=== PATIENT | male | born 1945 | race Caucasian/White ===

== ENCOUNTER 2017-04-14 13:55 | Emergency (ER) | payer MEDICARE, OTHER ==
[~2017-04-14] VITALS: Ht 162.6 cm; Wt 90.0 kg
[2017-04-14 13:58] VITALS: BP 198/84; PULSE 79; RESP 18; TEMP 98.5; O2SAT 96
[2017-04-14] MEDS ORDERED: SODIUM CHLORIDE 0.9% FLUSH 10 ML FLUSH IVF PRN (14:30)
--- NOTE | 2017-04-14 14:57 | PD ---
HPI Chief Complaint: Complaint Time Seen by Provider: 14:11 Travel History International Travel<30 days: No Contact w/Intl Traveler<30days: No Traveled to known affect area: No History of Present Illness HPI 71-year-old male presents to the emergency department complaining of urinary retention since this morning. States he only 'dribbled' the last time he urinated. He says he did not completely empty his bladder. Denies hematuria, at risk sexual behavior, fever, chills, chest pain, shortness of breath. He has mild pelvic discomfort. States he has had an elevated PSA for approximately 2 years and has only recently had issues with urination. Patient is due to see urologist however, he is concerned because he is not able to urinate now. Medical history significant for MIs, on Plavix. No recent trauma. Patient is not on Flomax or any other medications to reduce his symptoms. PFSH Past Medical History Hx Anticoagulant Therapy: Yes (PLAVIX) Cancer: Yes (SQUAMOUS CELL CARC. ) Cardiac Catheterization: Yes (MT X2, STENTS X2) Cardiovascular Problems: Yes (2 MT, STENTS ) High Cholesterol: Yes Hypertension: Yes Tetanus Vaccination: < 5 Years ?: Not Past Surgical History Appendectomy: Yes Tonsillectomy: Yes Other Surgery: Yes (TONGUE AND NECK CA SX) Social History Alcohol Use: Yes (OCC) Tobacco Use: No Substance Use: No Allergies-Medications (Allergen,Severity, Reaction): Coded Allergies: shellfish derived (Verified Allergy, Intermediate, Hives, 04/14/17) Reported Meds & Prescriptions Reported Meds & Active Scripts Active Flomax (Tamsulosin HCl) 0.4 Mg Cap 0.4 Mg PO HS 14 Days Review of Systems Except as stated in HPI: all other systems reviewed are Neg Physical Exam Narrative GENERAL: Well-developed well-nourished in no apparent distress SKIN: Focused skin assessment warm/dry. HEAD: Atraumatic. Normocephalic. EYES: Pupils equal and round. No scleral icterus. No injection or drainage. NECK: Trachea midline. No JVD. CARDIOVASCULAR: Regular rate and rhythm. No murmur appreciated. RESPIRATORY: No accessory muscle use. Clear to auscultation. Breath sounds equal bilaterally. GASTROINTESTINAL: Abdomen soft nontender nondistended. Pelvic region- round smooth mass consistent with a distended bladder. Rectal exam- good tone, stool brown, prostate enlarged without nodules. Penile exam- no rashes or lesions. No discharge. No obvious strictures or edema. MUSCULOSKELETAL: No obvious deformities. No clubbing. No cyanosis. No edema. NEUROLOGICAL: Awake and alert. No obvious cranial nerve deficits. Motor grossly within normal limits. Normal speech. PSYCHIATRIC: Appropriate mood and affect; insight and judgment normal. Data Data Last Documented VS Vital Signs Date Time Temp Pulse Resp B/P (MAP) Pulse Ox O2 Delivery O2 Flow Rate FiO2 04/14/17 13:58 98.5 79 18 198/84 (122) 96 Room Air Orders Orders Complete Blood Count With Diff (04/14/17 14:25) Basic Metabolic Panel (Bmp) (04/14/17 14:25) Urinalysis - C+S If Indicated (04/14/17 14:25) Ecg Monitoring (04/14/17 14:25) Iv Access Insert/Monitor (04/14/17 14:25) Sodium Chloride 0.9% Flush (Ns Flush) (04/14/17 14:30) Urinary Catheter Insert/Apply (04/14/17 14:39) Bag, Leg 32oz Sterile Large Ea (04/14/17 15:18) Ed Discharge Order (04/14/17 15:33) Labs Laboratory Tests Test 04/14/17 14:40 White Blood Count 7.1 TH/MM3 Red Blood Count 5.66 MIL/MM3 Hemoglobin 17.7 GM/DL Hematocrit 50.2 % Mean Corpuscular Volume 88.6 FL Mean Corpuscular Hemoglobin 31.3 PG Mean Corpuscular Hemoglobin Concent 35.3 % Red Cell Distribution Width 14.1 % Platelet Count 306 TH/MM3 Mean Platelet Volume 7.8 FL Neutrophils (%) (Auto) 76.7 % Lymphocytes (%) (Auto) 14.2 % Monocytes (%) (Auto) 7.6 % Eosinophils (%) (Auto) 1.0 % Basophils (%) (Auto) 0.5 % Neutrophils # (Auto) 5.5 TH/MM3 Lymphocytes # (Auto) 1.0 TH/MM3 Monocytes # (Auto) 0.5 TH/MM3 Eosinophils # (Auto) 0.1 TH/MM3 Basophils # (Auto) 0.0 TH/MM3 CBC Comment DIFF FINAL Differential Comment Urine Color LIGHT-YELLOW Urine Turbidity CLEAR Urine pH 7.0 Urine Specific [place] 1.006 Urine Protein NEG mg/dL Urine Glucose (UA) NEG mg/dL Urine Ketones NEG mg/dL Urine Occult Blood NEG Urine Nitrite NEG Urine Bilirubin NEG Urine Urobilinogen LESS THAN 2.0 MG/DL Urine Leukocyte Esterase NEG Urine RBC LESS THAN 1 /hpf Microscopic Urinalysis Comment CULT NOT INDICATED Blood Urea Nitrogen 18 MG/DL Creatinine 1.24 MG/DL Random Glucose 118 MG/DL Calcium Level 9.8 MG/DL Sodium Level 136 MEQ/L Potassium Level 3.7 MEQ/L Chloride Level 102 MEQ/L Carbon Dioxide Level 25.3 MEQ/L Anion Gap 9 MEQ/L Estimat Glomerular Filtration Rate 57 ML/MIN [facility] [place] Medical Decision Making Medical Screen Exam Complete: Yes Emergency Medical Condition: Yes Differential Diagnosis BPH, urinary retention, cystitis, urine tract infection Narrative Course 71-year-old male presents to the emergency department complaining of urinary retention since this morning. States he only 'dribbled' the last time he urinated. He says he did not completely empty his bladder. Denies hematuria, at risk sexual behavior, fever, chills, chest pain, shortness of breath. He has mild pelvic discomfort. States he has had an elevated PSA for approximately 2 years and has only recently had issues with urination. Patient is due to see urologist however, he is concerned because he is not able to urinate now. Medical history significant for MIs, on Plavix. No recent trauma. Patient is not on Flomax or any other medications to reduce his symptoms. Vital signs stable Urine catheter [id number] cc drained. Patient's symptoms drastically improved Laboratory Tests Test 04/14/17 14:40 White Blood Count 7.1 TH/MM3 Red Blood Count 5.66 MIL/MM3 Hemoglobin 17.7 GM/DL Hematocrit 50.2 % Mean Corpuscular Volume 88.6 FL Mean Corpuscular Hemoglobin 31.3 PG Mean Corpuscular Hemoglobin Concent 35.3 % Red Cell Distribution Width 14.1 % Platelet Count 306 TH/MM3 Mean Platelet Volume 7.8 FL Neutrophils (%) (Auto) 76.7 % Lymphocytes (%) (Auto) 14.2 % Monocytes (%) (Auto) 7.6 % Eosinophils (%) (Auto) 1.0 % Basophils (%) (Auto) 0.5 % Neutrophils # (Auto) 5.5 TH/MM3 Lymphocytes # (Auto) 1.0 TH/MM3 Monocytes # (Auto) 0.5 TH/MM3 Eosinophils # (Auto) 0.1 TH/MM3 Basophils # (Auto) 0.0 TH/MM3 CBC Comment DIFF FINAL Differential Comment Urine Color LIGHT-YELLOW Urine Turbidity CLEAR Urine pH 7.0 Urine Specific [place] 1.006 Urine Protein NEG mg/dL Urine Glucose (UA) NEG mg/dL Urine Ketones NEG mg/dL Urine Occult Blood NEG Urine Nitrite NEG Urine Bilirubin NEG Urine Urobilinogen LESS THAN 2.0 MG/DL Urine Leukocyte Esterase NEG Urine RBC LESS THAN 1 /hpf Microscopic Urinalysis Comment CULT NOT INDICATED Blood Urea Nitrogen 18 MG/DL Creatinine 1.24 MG/DL Random Glucose 118 MG/DL Calcium Level 9.8 MG/DL Sodium Level 136 MEQ/L Potassium Level 3.7 MEQ/L Chloride Level 102 MEQ/L Carbon Dioxide Level 25.3 MEQ/L Anion Gap 9 MEQ/L Estimat Glomerular Filtration Rate 57 ML/MIN Labs- BUN/Cr stable. No evidence of UTI. Pt will be discharged home with a urinary leg bag, and Flomax. Advised on care. Strongly advised to follow up with PCP and urologist as scheduled. Return to the ED for worsening or persistent symptoms. Diagnosis Primary Impression: Urinary obstruction Referrals: Primary Care Physician Urologist Additional Instructions: Follow up with your primary care physician. Follow up with your urologist ASHLEY. Empty the urinary bag frequently in a toilet. Scripts Tamsulosin (Flomax) 0.4 Mg Cap 0.4 MG PO HS for Manage Prostate Problems for 14 Days, #14 CAP 0 Refills Prov: Storm Farrar MD 04/14/17 Disposition: 01 DISCHARGE HOME Condition: Stable Cheryl Cantrell Apr 14, 2017 14:57
[2017-04-14 15:03] LABS: AUTOMATED NEUTROPHIL # 5.5 TH/MM3 (1.8-7.7); BASOPHIL % 0.5 % (0.0-2.0); EOSINOPHIL # 0.1 TH/MM3 (0-0.4); HEMATOCRIT 50.2 % (39.0-51.0); HEMO FLAGS DIFF FINAL; LYMPH % 14.2 % (9.0-44.0); MEAN CELL VOLUME 88.6 FL (80.0-100.0); MEAN CORPUSCULAR HEMOGLOBIN 31.3 PG (27.0-34.0); MEAN CORPUSCULAR HGB CONC 35.3 % (32.0-36.0); MONO % 7.6 % (0.0-8.0); NEUT % 76.7 % (16.0-70.0); PLATELET COUNT 306 TH/MM3 (150-450); RED BLOOD COUNT 5.66 MIL/MM3 (4.50-5.90); RED CELL DISTRIBUTION WIDTH 14.1 % (11.6-17.2); WHITE BLOOD COUNT 7.1 TH/MM3 (4.0-11.0)
[2017-04-14 15:05] LABS: BLOOD, URINE NEG (NEG); GLUCOSE,URINE NEG (NEG); KETONE, URINE NEG (NEG); NITRITE,URINE NEG (NEG); URINE COLOR LIGHT-YELLOW (YELLW/STRAW)
[2017-04-14 15:07] LABS: COMMENT (UR) CULT NOT INDICATED; CULTURE IF INDICATED CULT NOT INDICATED
[2017-04-14 15:23] LABS: BICARBONATE 25.3 MEQ/L (21.0-32.0); POTASSIUM 3.7 MEQ/L (3.5-5.1)
[2017-04-14] MEDS ORDERED: TAMS5CAP PO (15:30)
[2017-04-14 16:39] VITALS: BP 132/75
== END 2017-04-14 17:25 | disposition home or self-care (01) ==
LOC: NEPE 13:55
DX: N13.9 Obstructive and reflux uropathy, unspecified (principal); I10 Essential (primary) hypertension; E78.00 Pure hypercholesterolemia, unspecified; I25.2 Old myocardial infarction; Z79.02 Long term (current) use of antithrombotics/antiplatelets; Z85.810 Personal history of malignant neoplasm of tongue; Z95.5 Presence of coronary angioplasty implant and graft
CPT/HCPCS: 51702; 80048; 81001; 85025